=== PATIENT | male | born 1995 | race Two or more races ===

== ENCOUNTER 2022-07-10 21:03 | Emergency (ER) | payer OTHER ==
[~2022-07-10] VITALS: Ht 165.1 cm; Wt 74.5 kg
[2022-07-10 21:44] VITALS: BP 151/87
[2022-07-10] MEDS ORDERED: BACITRACIN TOP OINT 1 UD PKG TOP ONE (22:30)
[2022-07-10] MEDS ORDERED: KETOROLAC TROMETH 30 MG/ML 1ML VIAL IM ONE (23:00)
[2022-07-10] MEDS ORDERED: TETANUS-DIPTH-ACEL PERTUSSIS 0.5ML SYR Tdap IM ONE (23:00)
[2022-07-10] MEDS ORDERED: HYDR-4902 PO (23:03)
[2022-07-10] MEDS ORDERED: AMOX-277 PO (23:03)
== END 2022-07-10 23:59 | disposition home or self-care (01) ==
LOC: ER 21:03
DX: S61.311A Laceration without foreign body of left index finger with damage to nail, initial encounter (principal); W26.8XXA Contact with other sharp object(s), not elsewhere classified, initial encounter; Y93.89 Activity, other specified; Y92.89 Other specified places as the place of occurrence of the external cause; Y99.8 Other external cause status
CPT/HCPCS: 12001